=== PATIENT | female | born 1990 ===

== ENCOUNTER → 2024-06-16 08:00 | Outpatient (CLI) | payer OTHER ==
[2024-06-16 09:25] LABS: HEMATOCRIT 29.1 % (36.0-45.00); HEMOGLOBIN 9.3 g/dL (12.0-15.00); MEAN CORPUSCULAR HEMOGLOBIN 22.1 pg (27.00-32.0); MEAN CORPUSCULAR HGB CONC 31.9 g/dl (32.0-36.0); PLATELET COUNT 355 K/uL (150-450)
[2024-06-16 09:26] LABS: MEAN CELL VOLUME 69.2 fL (80.00-100.00)
[2024-06-16 10:47] LABS: % SATURACION 5.7 % (15-50); ALBUMIN 4.2 gm/dL (3.4-5.0); BILIRUBIN TOTAL 0.5 mg/dL (0.3-1.2); CALCIUM 9.5 mg/dL (8.5-10.1); CREATININE SERUM 0.68 mg/dL (0.55-1.02); GFR 98.46; GLOBULINA 3.4 G/DL (2.4-3.5); POTASSIUM 3.94 mEq/L (3.5-5.1); T4 FREE 1.09 NG/ML (0.76-1.46); TOTAL PROTEIN 7.6 gm/dL (6.4-8.2); TSH 0.69 uIU/mL (0.358-3.74)
[2024-06-16 11:31] LABS: FOLIC ACID 12.19 ng/ml (4.78-20)
[2024-06-16 14:49] LABS: MANUAL PLATELET COUNT 398
[2024-06-16 14:51] LABS: PLATELET ESTIMATE NORMAL (NORMAL)
[2024-06-17 14:04] LABS: hgb f 0 % (0.0-2.0); hgb s 0 % (0.0)
[2024-06-18 22:03] LABS: PARIETAL CELL ANTIBODIES 8.3 Units (0.0-20.0)
== END | disposition home or self-care (01) ==
LOC: LAB 08:00
PROVIDERS: ATTEND Internal Medicine Hematology & Oncology
DX: D50.8 Other iron deficiency anemias (principal); N93.8 Other specified abnormal uterine and vaginal bleeding; R79.9 Abnormal finding of blood chemistry, unspecified; I10 Essential (primary) hypertension; R74.02 Elevation of levels of lactic acid dehydrogenase [LDH]; K76.89 Other specified diseases of liver; D55.0 Anemia due to glucose-6-phosphate dehydrogenase [G6PD] deficiency; D51.1 Vitamin B12 deficiency anemia due to selective vitamin B12 malabsorption with proteinuria; E03.8 Other specified hypothyroidism; E06.3 Autoimmune thyroiditis

== ENCOUNTER 2024-06-16 09:19 | Outpatient (CLI) | payer OTHER | END 2024-06-16 09:25 | disposition home or self-care (01) | LOC: SONOGRAMA 09:19 | PROVIDERS: ATTEND Internal Medicine Hematology & Oncology | DX: E04.2 Nontoxic multinodular goiter (principal); D50.8 Other iron deficiency anemias; N93.8 Other specified abnormal uterine and vaginal bleeding ==

== ENCOUNTER → 2024-09-20 07:30 | Outpatient (CLI) | payer OTHER ==
[2024-09-20 08:25] LABS: PARTIAL THROMBOPLASTIN TIME 28.6 SECONDS (22.0-34.0); PROTHROMBIN TIME 10.9 SECONDS (9.0-11.5)
[2024-09-20 08:43] LABS: HEMATOCRIT 32.5 % (36.0-45.00); HEMOGLOBIN 10.2 g/dL (12.0-15.00); MEAN CELL VOLUME 72.8 fL (80.00-100.00); MEAN CORPUSCULAR HEMOGLOBIN 22.8 pg (27.00-32.0); MEAN CORPUSCULAR HGB CONC 31.4 g/dl (32.0-36.0); PLATELET COUNT 383 K/uL (150-450); RED BLOOD COUNT 4.46 M/uL (4.00-6.00)
[2024-09-20 08:50] LABS: RED CELL DISTRIBUTION WIDTH 24.9 % (11.5-14.5)
[2024-09-20 08:55] LABS: COL EPI 125 SECONDS (82-175)
[2024-09-20 09:46] LABS: ALBUMIN 4.2 gm/dL (3.4-5.0); BILIRUBIN TOTAL 0.34 mg/dL (0.3-1.2); CALCIUM 9.4 mg/dL (8.5-10.1); CREATININE SERUM 0.66 mg/dL (0.55-1.02); GFR 101.91; GLOBULINA 2.9 G/DL (2.4-3.5); POTASSIUM 3.95 mEq/L (3.5-5.1); TOTAL PROTEIN 7.1 gm/dL (6.4-8.2)
[2024-09-20 13:21] LABS: FOLIC ACID 15.62 ng/ml (4.78-20)
[2024-09-22 15:10] LABS: FACTOR VIII ACTIVITY 81 % (56-140); VON WILLERBRAND ACTIVITY 61 % (50-200); VON WILLERBRAND ANTIGEN 82 % (50-200)
== END | disposition home or self-care (01) ==
LOC: LAB 07:30
PROVIDERS: ATTEND Internal Medicine Hematology & Oncology
DX: C73 Malignant neoplasm of thyroid gland (principal); D50.8 Other iron deficiency anemias; N93.8 Other specified abnormal uterine and vaginal bleeding; E03.8 Other specified hypothyroidism; E06.3 Autoimmune thyroiditis; E06.5 Other chronic thyroiditis; E04.2 Nontoxic multinodular goiter; I10 Essential (primary) hypertension; R74.02 Elevation of levels of lactic acid dehydrogenase [LDH]; K76.89 Other specified diseases of liver; D51.8 Other vitamin B12 deficiency anemias; D68.8 Other specified coagulation defects; D69.1 Qualitative platelet defects